=== PATIENT | female | born 1985 | race African-American/Black ===

== ENCOUNTER 2017-07-15 22:46 | Emergency (ER) | payer SELFPAY | END 2017-07-15 23:05 | disposition home or self-care (01) | LOC: NAV ERS 22:46 | DX: H53.8 Other visual disturbances (principal); F17.210 Nicotine dependence, cigarettes, uncomplicated ==

== ENCOUNTER 2018-04-25 03:24 | Emergency (ER) | payer SELFPAY ==
[2018-04-25] MEDS ORDERED: Lidocaine 1% w/Epinephrine 1:100K 30 ML VIAL ONE (04:03)
[2018-04-25] MEDS ORDERED: HYDROcodone/Acetaminophen 5/325 mg Tablet ONE (04:21)
[2018-04-25] MEDS ORDERED: Adacel (T-DAP) 0.5 ML SYRINGE ONE (04:38)
== END 2018-04-25 05:15 | disposition home or self-care (01) ==
LOC: NAV ERS 03:24
DX: L02.31 Cutaneous abscess of buttock (principal); F17.210 Nicotine dependence, cigarettes, uncomplicated
CPT/HCPCS: 10060; 90471; 90715; J2001

== ENCOUNTER 2018-10-10 15:39 | Emergency (ER) | payer MEDICAID | END 2018-10-10 16:20 | disposition home or self-care (01) | LOC: NAV ERS 15:39 | DX: L04.9 Acute lymphadenitis, unspecified (principal); F17.210 Nicotine dependence, cigarettes, uncomplicated | CPT/HCPCS: 99283 ==

== ENCOUNTER 2021-09-06 16:44 | Emergency (ER) | payer MEDICAID ==
[2021-09-06] MEDS ORDERED: Oxymetazoline HCl 0.05% (30 ML BOT) ONE (17:11)
== END 2021-09-06 17:32 | disposition home or self-care (01) ==
LOC: NAV ERS 16:44
DX: U07.1 COVID-19 (principal); J01.90 Acute sinusitis, unspecified; F17.210 Nicotine dependence, cigarettes, uncomplicated
CPT/HCPCS: 99283; U0003; U0005

== ENCOUNTER 2024-02-18 15:54 | Emergency (ER) | payer SELFPAY ==
[2024-02-18] MEDS ORDERED: Acetaminophen 500 MG TAB ONE (16:04)
[2024-02-18] MEDS ORDERED: Ibuprofen 800 MG TAB ONE (16:04)
[2024-02-18] MEDS ORDERED: Ondansetron ODT 4 MG TAB ONE (16:05)
== END 2024-02-18 16:26 | disposition home or self-care (01) ==
LOC: NAV ERS 15:54
DX: J11.1 Influenza due to unidentified influenza virus with other respiratory manifestations (principal); F17.210 Nicotine dependence, cigarettes, uncomplicated
CPT/HCPCS: 87428; 99283; Q0162